=== PATIENT | female | born 1955 | race Caucasian/White ===

== ENCOUNTER → 2020-08-02 | Outpatient (CLI) | payer OTHER ==
[~2020-08-02] MED LIST: CLOPIDOGREL75 MG PO; CRESTOR 10 MG T10 MG PO; ECOTRIN81 MG PO; ELIQUIS5 MG PO; FAMOTIDINE20 MG PO; METOPROLOL TART25 MG PO; PROPAFENONE HC150 MG PO; SIMVASTATIN40 MG PO; SOTALOL80 MG PO
== END ==
LOC: KOH-I 12:52
DX: Z87.891 Personal history of nicotine dependence (principal)
CPT/HCPCS: 71271

== ENCOUNTER → 2020-09-07 | Day surgery (SDC) | payer OTHER | END | disposition home or self-care (01) | LOC: OR 07:13 | PROVIDERS: Internal Medicine Gastroenterology | PROC: 0DJD8ZZ Inspection of Lower Intestinal Tract, Via Natural or Artificial Opening Endoscopic (ICD-10-PCS; 2020-09-07) | PROC: 0DB68ZX Excision of Stomach, Via Natural or Artificial Opening Endoscopic, Diagnostic (ICD-10-PCS; principal; 2020-09-07 10:00) | PROC: 0DB78ZX Excision of Stomach, Pylorus, Via Natural or Artificial Opening Endoscopic, Diagnostic (ICD-10-PCS; 2020-09-07 10:00) | DX: Z12.11 Encounter for screening for malignant neoplasm of colon (principal); K31.9 Disease of stomach and duodenum, unspecified; K29.50 Unspecified chronic gastritis without bleeding; K21.9 Gastro-esophageal reflux disease without esophagitis; I48.91 Unspecified atrial fibrillation; E66.3 Overweight; Z68.26 Body mass index [BMI] 26.0-26.9, adult; Z20.822 Contact with and (suspected) exposure to COVID-19; Z87.891 Personal history of nicotine dependence; Z88.0 Allergy status to penicillin; Z79.01 Long term (current) use of anticoagulants; Z79.82 Long term (current) use of aspirin; Z79.899 Other long term (current) drug therapy | CPT/HCPCS: J2704; J7040 ==

== ENCOUNTER → 2021-01-11 | Outpatient (CLI) | payer OTHER | LOC: KOH-I 11:31 | DX: M25.561 Pain in right knee (principal) | CPT/HCPCS: 73562 ==

== ENCOUNTER → 2021-02-08 | Outpatient (CLI) | payer OTHER, MEDICARE | LOC: MAMO 10:50 | DX: Z12.31 Encounter for screening mammogram for malignant neoplasm of breast (principal); Z78.0 Asymptomatic menopausal state; M85.852 Other specified disorders of bone density and structure, left thigh | CPT/HCPCS: 77063; 77067; 77080 ==

== ENCOUNTER → 2021-04-13 | Outpatient (CLI) | payer OTHER, MEDICARE | LOC: LAB 18:24 | DX: Z23 Encounter for immunization (principal); Z20.822 Contact with and (suspected) exposure to COVID-19 | CPT/HCPCS: 0013A; 0064A; 91301 ==

== ENCOUNTER 2021-09-12 14:48 | Emergency (ER) | payer OTHER, MEDICARE ==
[2021-09-12 15:53] LABS: HEMOGLOBIN 13.9 gm/dl (12.3-15.3); RED BLOOD COUNT 4.4 M/UL (4.00-5.10); WHITE BLOOD COUNT 9.8 K/UL (4.5-11.0)
[2021-09-12] MEDS ORDERED: PROTONIX40 MG PO (19:21)
== END 2021-09-12 19:48 | disposition home or self-care (01) ==
LOC: ER1 14:48
PROVIDERS: Family Medicine
DX: R07.89 Other chest pain (principal); N18.9 Chronic kidney disease, unspecified; J44.9 Chronic obstructive pulmonary disease, unspecified; Z88.0 Allergy status to penicillin
CPT/HCPCS: 71045; 80053; 82550; 82553; 84484; 85025; 93005; 99285

== ENCOUNTER → 2021-10-10 | Outpatient (CLI) | payer OTHER, MEDICARE ==
[~2021-10-10] MED LIST changes: +PROTONIX40 MG PO
== END ==
LOC: KOH-I 13:21
DX: Z87.891 Personal history of nicotine dependence (principal)
CPT/HCPCS: 71271

== ENCOUNTER → 2022-02-14 | Outpatient (CLI) | payer OTHER, MEDICARE ==
[~2022-02-14] MED LIST changes: +CALCIUM 600 +1 EAC2 PO; +SOTALOL120 MG PO; +SOTALOL160 MG PO; -SOTALOL80 MG PO; +ZETIA10 MG PO
[2022-02-14 07:34] LABS: HEMOGLOBIN 14.6 gm/dl (12.3-15.3); RED BLOOD COUNT 4.74 M/UL (4.00-5.10); WHITE BLOOD COUNT 9.5 K/UL (4.5-11.0)
== END ==
LOC: CATH 07:13
PROVIDERS: Internal Medicine Cardiovascular Disease
DX: I48.91 Unspecified atrial fibrillation (principal)
CPT/HCPCS: 80048; 85027; 93005

== ENCOUNTER → 2022-02-15 | Outpatient (CLI) | payer OTHER, MEDICARE | LOC: HEART 5 14:00 | DX: I48.91 Unspecified atrial fibrillation (principal) ==